=== PATIENT | male | born 1935 | race Caucasian/White ===

== ENCOUNTER → 2016-10-08 | Outpatient (CLI) | payer MEDICARE, BC ==
[2016-10-08 12:33] LABS: ANION GAP 12.4 MEQ/L (3-15)
== END ==
LOC: LAB 11:45
PROVIDERS: ATTEND Family Medicine
DX: Z51.81 Encounter for therapeutic drug level monitoring (principal); Z79.01 Long term (current) use of anticoagulants; R79.89 Other specified abnormal findings of blood chemistry; E10.65 Type 1 diabetes mellitus with hyperglycemia
CPT/HCPCS: 36415; 80048; 83036; 85610

== ENCOUNTER → 2016-11-25 | Outpatient (CLI) | payer MEDICARE, BC ==
[~2016-11-25] MED LIST: DUTA0.5C PO; LOSA50TA2 PO; MEMA10TA PO; PRAV20TA PO; WARF7.5T PO
[2016-11-25 11:55] LABS: BASOPHILS % (AUTO) 1 % (0-2); EOSINOPHILS % (AUTO) 1 % (0-4); LYMPHOCYTES # (AUTO) 0.8 X10^3; MEAN CORPUSCULAR HEMOGLOBIN 30.9 PG (26.0-34.0); MEAN CORPUSCULAR HGB CONC 34.9 g/dL (31.0-37.0); MEAN CORPUSCULAR VOLUME 89 FL (80-100); MEAN PLATELET VOLUME 10.8 FL (6.0-9.5); MONOCYTES # (AUTO) 0.5 X10^3; MONOCYTES % (AUTO) 11 % (3-11); NEUTROPHILS % (AUTO) 69 % (51-67); PLATELET COUNT 204 10^3uL (150-450); WHITE BLOOD COUNT 4.33 10^3uL (4.0-11.0)
[2016-11-25 12:06] LABS: ALBUMIN 3.9 g/dL (3.4-5.0); ANION GAP 14.9 MEQ/L (3-15); TOTAL PROTEIN 6.7 g/dL (6.4-8.5)
== END ==
LOC: LAB 11:35
PROVIDERS: ATTEND Family Medicine
DX: Z51.81 Encounter for therapeutic drug level monitoring (principal); Z79.01 Long term (current) use of anticoagulants; D50.8 Other iron deficiency anemias; R79.89 Other specified abnormal findings of blood chemistry; K81.0 Acute cholecystitis
CPT/HCPCS: 36415; 80053; 82150; 82977; 83690; 85025; 85610

== ENCOUNTER → 2016-11-27 | Outpatient (CLI) | payer MEDICARE, BC ==
--- NOTE | 2016-11-27 11:11 | Diagnostic Imaging Report ---
PROCEDURE: US Gallbladder. TECHNIQUE: Multiple real-time grayscale images were obtained over the right upper quadrant in various projections. INDICATION: Right upper quadrant pain. Possible cholecystitis. FINDINGS: There is mild hepatomegaly with liver measuring 18 cm in long axis. No liver lesions are demonstrated. Portal and hepatic vein are patent. Gallbladder shows no gallstones. Gallbladder wall measures 3 mm. There is no pericholecystic edema. Common bile duct measures 7 mm. Pancreas is not well-seen with considerable bowel gas in the midline. There is no ascites. Right kidney appears normal. Doppler imaging shows patent portal and hepatic vein. IMPRESSION: 1. Mild hepatomegaly. 2. Bile ducts not dilated with normal-appearing gallbladder. Dictated by: Dictated on workstation # [id number]
== END ==
LOC: RAD 09:04
PROVIDERS: ATTEND Family Medicine
DX: K81.0 Acute cholecystitis (principal)
CPT/HCPCS: 76705